=== PATIENT | female | born 1995 | race American Indian/Alaskan Native ===

== ENCOUNTER 2016-09-01 22:45 | Emergency (ER) | payer MEDICAID ==
[2016-09-01 23:25] VITALS: BP 129/68
[2016-09-01 23:36] LABS: Basophils % (Auto) 1.4 % (0.0-1.8); Eosinophils % (Auto) 2.9 % (0.0-4.3); Hematocrit 36.8 % (30.3-42.9); Hemoglobin 12.6 gm/dl (10.1-14.3); Mean Corpuscular HGB Conc 34 % (30-34); Mean Corpuscular Hemoglobin 30 pg (28-32); Mean Corpuscular Volume 88 fl (79-97); Platelet Count 382 K/mm3 (140-440); Red Blood Count 4.18 M/mm3 (3.65-5.03); Red Cell Distribution Width 13.7 % (13.2-15.2); White Blood Count 5.6 K/mm3 (4.5-11.0)
[2016-09-01 23:50] LABS: Anion Gap 19 mmol/L; BUN/Creatinine Ratio 16.66; Blood Urea Nitrogen 15 mg/dL (7-17); Carbon Dioxide 23 mmol/L (22-30); Glucose 107 mg/dL (65-100); Potassium 4.4 mmol/L (3.6-5.0); Sodium 141 mmol/L (137-145)
--- NOTE | 2016-09-02 00:22 | XRay Report ---
FINAL REPORT PROCEDURE: XR CHEST ROUTINE 2V TECHNIQUE: PA and lateral chest radiographs were obtained. CPT 20548 HISTORY: Shortness of breath COMPARISON: No prior studies are available for comparison. FINDINGS: Heart: Normal. Mediastinum/Vessels: Multiple small sternal wires are noted.. Lungs/Pleural space: Normal. Bony thorax: No acute osseous abnormality. Other: IMPRESSION: There is no evidence of an acute cardiopulmonary process..
[2016-09-02 01:47] LABS: Bilirubin,Urine NEG (Negative); Blood,Urine NEG (Negative); Ketones,Urine NEG (Negative); Leukocyte Esterase,Urine NEG (Negative); Mucus,Urine FEW /HPF; Nitrite,Urine NEG (Negative); Protein,Urine <15 mg/dL mg/dL (Negative); Urobilinogen,Urine < 2.0 mg/dL (<2.0); WBC,Urine < 1.0 /HPF (0.0-6.0)
== END 2016-09-02 04:00 | disposition left against medical advice (07) ==
LOC: ED 22:45
DX: R55 Syncope and collapse (principal); Z53.21 Procedure and treatment not carried out due to patient leaving prior to being seen by health care provider
CPT/HCPCS: 36415; 71020; 80048; 81001; 84484; 85025; 93005; 93010

== ENCOUNTER 2016-09-04 23:30 | Emergency (ER) | payer MEDICAID ==
[2016-09-05 01:42] LABS: Basophils % (Auto) 2.3 % (0.0-1.8); Hematocrit 37.8 % (30.3-42.9); Hemoglobin 12.3 gm/dl (10.1-14.3); Mean Corpuscular HGB Conc 33 % (30-34); Mean Corpuscular Hemoglobin 29 pg (28-32); Mean Corpuscular Volume 88 fl (79-97); Platelet Count 345 K/mm3 (140-440); Red Blood Count 4.32 M/mm3 (3.65-5.03); Red Cell Distribution Width 14.1 % (13.2-15.2); White Blood Count 4.1 K/mm3 (4.5-11.0)
[2016-09-05 01:56] LABS: Blood Urea Nitrogen 12 mg/dL (7-17); Carbon Dioxide 24 mmol/L (22-30)
[2016-09-05 01:57] LABS: Anion Gap 20 mmol/L; BUN/Creatinine Ratio 13.33; Calcium 9.3 mg/dL (8.4-10.2); Chloride 101.8 mmol/L (98-107); Glucose 92 mg/dL (65-100); Potassium 4.7 mmol/L (3.6-5.0); Sodium 141 mmol/L (137-145)
[2016-09-05 02:37] LABS: Bilirubin,Urine NEG (Negative); Blood,Urine SM (Negative); Ketones,Urine NEG (Negative); Leukocyte Esterase,Urine NEG (Negative); Nitrite,Urine NEG (Negative); Protein,Urine <15 mg/dL mg/dL (Negative); RBC,Urine < 1.0 /HPF (0.0-6.0); Urobilinogen,Urine < 2.0 mg/dL (<2.0); WBC,Urine < 1.0 /HPF (0.0-6.0)
--- NOTE | 2016-09-05 07:55 | Emergency Department Report ---
HPI - General Chief Complaint: Chest Pain Time Seen by Provider: 09/05/16 07:33 - HPI HPI: This is a 21-year-old -[place] female with history of high functioning Down syndrome who presents to the emergency department with her mother to be checked out for recent chest pain and and/or syncope. The patient was admitted here 3 days ago, on September 02, after she had some questionable syncope. They say that the patient signed out or asked to be discharged early as she was having her high school graduation over the weekend and she did not want to miss it. However they say that there were more tests to be done so they have returned to get checked out prior to a long car ride/trip to [place] coming up. Mom says that the patient's syncopal episode happened after some level of exertion a few days ago. She does not currently have any chest pain, mom says that she has some chest pain yesterday after the patient started trying to play dodgeball with her friends. The patient goes to the "[facility]" in [place] for cardiology and sees a Dr. minaya. She was supposed to have an appointment with him last week but missed it for a "senior dinner." There is a consultation by Dr. Gregorio be done on September 03 stating that the plan would be for an outpatient walkup follow-up for any event monitor echocardiogram and that she does not require a stress thallium scan. It is unknown what other further tests mom says the patient is lacking but she may be referring to this cardiology plan. ED Past Medical Hx - Past Medical History Previous Medical History?: Yes Hx Seizures: Yes Hx Asthma: Yes Additional medical history: Conversion disorder, Down Syndrome, AV canal, having a stress test to prepare for heart surgery, tooth abcess - Surgical History Additional Surgical History: Heart at 2 months old - Social History Smoking Status: Unknown if ever smoked - Medications Home Medications: Home Medications Medication Instructions Recorded Confirmed Last Taken Type No Known Home Medications [No 09/02/16 09/02/16 Unknown History Reported Home Medications] ED Review of Systems ROS: Stated complaint: CP Other details as noted in HPI Comment: All other systems reviewed and negative Constitutional: denies: chills, fever Eyes: denies: eye pain, eye discharge, vision change ENT: denies: ear pain, throat pain Respiratory: denies: cough, shortness of breath, wheezing Cardiovascular: chest pain. denies: palpitations, edema Gastrointestinal: denies: abdominal pain, nausea, diarrhea Genitourinary: denies: urgency, dysuria, discharge Musculoskeletal: denies: back pain, joint swelling, arthralgia Skin: denies: rash, lesions Neurological: denies: headache, weakness, paresthesias Physical Exam - Physical Exam Vital Signs: Vital Signs 09/05/16 09/05/16 00:12 01:01 Temperature 99.4 F 99.4 F Pulse Rate 68 68 Respiratory 18 18 Rate Blood Pressure 114/63 Blood Pressure 114/63 [Right] O2 Sat by Pulse 99 99 Oximetry Physical Exam: GENERAL: The patient is well-developed well-nourished. HEENT: Normocephalic. Atraumatic. Extraocular motions are intact. Patient has moist mucous membranes. NECK: Supple. Trachea is midline. CHEST/LUNGS: Clear to auscultation. There is no respiratory distress noted. HEART/CARDIOVASCULAR: Regular. There is no tachycardia. There is no gallop rub or murmur. ABDOMEN: Abdomen is soft, nontender. Patient has normal bowel sounds. There is no abdominal distention. SKIN: There is no rash. There is no edema. There is no diaphoresis. NEURO: The patient is awake, alert, and oriented. The patient is cooperative. The patient has no focal neurologic deficits. The patient has normal speech. MUSCULOSKELETAL: There is no tenderness or deformity. There is no limitation range of motion. There is no evidence of acute injury. ED Course Vital Signs 09/05/16 09/05/16 00:12 01:01 Temperature 99.4 F 99.4 F Pulse Rate 68 68 Respiratory 18 18 Rate Blood Pressure 114/63 Blood Pressure 114/63 [Right] O2 Sat by Pulse 99 99 Oximetry - Consultations Consultation #1: I spoke with the showroom consultant on-call, Dr. Lopez, who says that he does not recommend a stress test and that there is no reason for admission and recommends follow-up outpatient with either [facility] or the patient's own showroom consultant. 09/05/16 09:15 ED Medical Decision Making - Lab Data Result diagrams: 09/05/16 01:12 09/05/16 01:12 - EKG Data -: EKG Interpreted by Me EKG shows normal: sinus rhythm, axis (LAD), intervals, QRS complexes (right bundle branch block, LVH ), ST-T waves (nonspecific ST-T waves) Rate: bradycardia (54 bpm) - EKG Data Interpretation: unchanged when compared t (09/03/16) - Radiology Data Radiology results: image reviewed interpreted by me: Chest x-ray did not show any acute process. Heart is normal shape and size. No effusions. No pneumothorax. No signs of pneumonia seen. - Medical Decision Making This is a 21-year-old female with high functioning Down syndrome who presents for a recheck for some recent chest pain and a syncopal episode. She was recently admitted here and discharged home but the patient and her mother thought that they were either discharged early or asked to leave prior to all tests being completed. Today the patient has an EKG that does not show any signs of ST elevation MN and is unchanged from previous. She had labs that showed negative troponins 3. She is not currently complaining of any chest pain or shortness of breath. She has negative on the pulmonary embolism rule out criteria. I spoke with the cardiology service, and even the showroom consultant who saw her inpatient, and they feel that she is safe for discharge home and does not require admission. She is more than welcome to follow up with an outpatient or with her own showroom consultant. She has been encouraged by myself to return to the ER with any worsening of her symptoms or any acute distress. - Differential Diagnosis costochondritis, GERD, MN, pneumonia Critical Care Time: No Critical care attestation.: If time is entered above; I have spent that time in minutes in the direct care of this critically ill patient, excluding procedure time. ED Disposition Clinical Impression: Intermittent chest pain Disposition: DISCHARGED TO HOME OR SELFCARE Is pt being admited?: No Condition: Stable Instructions: Chest Pain (ED) Additional Instructions: Please follow-up with your primary care doctor. I have given you a referral for the showroom consultant that you saw here, Dr. Lopez. [facility] is happy to see you outpatient for further evaluation of your intermittent chest pains. Your more than welcome to see your own showroom consultant. Return to the emergency department with any worsening of your symptoms or any acute distress. Referrals: PRIMARY CARE, [Primary Care Provider] - 3-5 Days GABRIEL LOPEZ MD [Staff Physician] - 3-5 Days Time of Disposition: 09:17
[2016-09-05 08:36] VITALS: BP 95/37
--- NOTE | 2016-09-05 08:45 | XRay Report ---
AP CHEST: HISTORY: chest pain AP view of the chest demonstrates a normal mediastinal and cardiac contour with clear lungs and normal bony and soft tissue structures. IMPRESSION: Unremarkable AP chest.
== END 2016-09-05 09:29 | disposition home or self-care (01) ==
LOC: ED 23:30
DX: R07.89 Other chest pain (principal); J45.909 Unspecified asthma, uncomplicated; R56.9 Unspecified convulsions
CPT/HCPCS: 36415; 71010; 80048; 81001; 84484; 85025; 93005; 93010; 99285